=== PATIENT | male | born 1985 | race African-American/Black ===

== ENCOUNTER 2020-12-30 21:47 | Observation (INO) ==
[2020-12-30] MEDS ORDERED: SODIUM CHLORIDE 0.9% 1,000 ML IV STA (22:21)
[2020-12-30] MEDS ORDERED: PANTOPRAZOLE 40 MG VIAL IV STA ×2 (22:21→22:41)
[2020-12-30 22:33] LABS: Basophils # 0.1 10*3/uL (0.0-0.2); Basophils % 0.9 % (0.0-0.8); Eosinophils # 0.5 10*3/uL (0.0-0.87); Eosinophils % 5.4 % (0.00-10.9); Hematocrit 46.3 VOL% (42.0-52.0); Hemoglobin 15.5 GM/DL (14.0-18.0); Immature Granulocytes % 0.2 %; Immature Granulocytes Absolute 0.02 #; Lymphocytes % 40.4 % (21.2-54.2); Mean Corpuscular HGB Conc 33.5 GM/DL (32-36); Mean Corpuscular Volume 99.1 FL (87-102); Mean Platelet Volume 11.7 FL (9.6-12.0); Monocytes % 7.4 % (1.7-12.7); Neutrophils % 45.7 % (38.7-73.9); Platelet Count 167 T/CUMM (130-400); Red Blood Count 4.67 MC/CUMM (3.8-5.5); Red Cell Distribution Width 11.4 % (9.3-17.3); White Blood Count 9.8 T/CUMM (4-12)
[2020-12-30 22:51] LABS: PT Patient Result 10.9 SECS (10.5-12.0)
[2020-12-30 23:20] LABS: Albumin 4.6 G/DL (3.4-5.0); Bilirubin,Total 1.1 MG/DL (0.2-1.0); Calcium 8.9 MG/DL (8.5-10.1); Osmolality,Calculated 271.7 MOS/KG (273-304); Potassium 3.6 MMOL/L (3.5-5.1); Total Protein 8.4 G/DL (6.4-8.2)
[2020-12-31] MEDS ORDERED: GLUCAGON 1 MG VIAL IM PRN (00:35)
[2020-12-31] MEDS ORDERED: ONDANSETRON 4 MG/2 ML VIAL IV PRN (00:35)
[2020-12-31] MEDS ORDERED: DEXTROSE 50% 25 GM/50 ML VIAL IV PRN (00:35)
[2020-12-31 00:50] LABS: Bilirubin,Urine Negative (Negative); Blood, Urine Small mg/dL (Negative); Glucose,Urine (UA) Negative (Negative); Ketones,Urine Negative (Negative); Mucus,Urine Occasional /LPF (Occasional); Nitrite,Urine Negative (Negative); Protein,Urine Negative; RBC,Urine 1 /HPF (0-4); Urine Appearance CLEAR (Clear); Urine Color Straw (Yellow); Urine Specific Gravity 1.004 (1.001-1.035); Urine Urobilinogen < 2.0 EU/DL (0.2-1.0)
[2020-12-31 00:59] LABS: Barbiturates Screen,Urine Negative (Negative); Benzodiazepines Screen,Urine Negative (Negative); Cannabinoid Screen,Urine Positive (Negative); Opiate Screen,Urine Negative (Negative); Phencyclidine Screen,Urine Negative (Negative)
[2020-12-31] MEDS ORDERED: LACTATED RINGERS 1,000 ML IV SCH (01:00)
[2020-12-31 03:49] LABS: Basophils # 0.1 10*3/uL (0.0-0.2); Basophils % 0.7 % (0.0-0.8); Eosinophils # 0.4 10*3/uL (0.0-0.87); Eosinophils % 2.9 % (0.00-10.9); Hematocrit 41.6 VOL% (42.0-52.0); Hemoglobin 13.6 GM/DL (14.0-18.0); Immature Granulocytes % 0.3 %; Immature Granulocytes Absolute 0.04 #; Lymphocytes # 2.7 10*3/uL (1.4-4.0); Lymphocytes % 21.9 % (21.2-54.2); Mean Corpuscular HGB Conc 32.7 GM/DL (32-36); Mean Platelet Volume 11.9 FL (9.6-12.0); Monocytes % 5.2 % (1.7-12.7); Platelet Count 142 T/CUMM (130-400); Red Blood Count 4.12 MC/CUMM (3.8-5.5); Red Cell Distribution Width 11.5 % (9.3-17.3); White Blood Count 12.4 T/CUMM (4-12)
[2020-12-31 06:50] LABS: Hematocrit 40.6 VOL% (42.0-52.0); Hemoglobin 13.6 GM/DL (14.0-18.0)
[2020-12-31 08:56] VITALS: BP 134/81
[2020-12-31] MEDS ORDERED: PANTOPRAZOLE 40 MG VIAL IV SCH (09:00)
== END 2020-12-31 11:48 | disposition home or self-care (01) ==
LOC: N.EDINP 21:47 → N.ED 21:47 → N.EDINP 12-31 02:08 → N.4E 12-31 02:19
PROVIDERS: ADMIT Family Medicine; ATTEND Family Medicine